=== PATIENT | female | born 1990 | race African-American/Black ===

== ENCOUNTER 2021-01-22 15:10 | Emergency (ER) | payer SELFPAY ==
[~2021-01-22] VITALS: Ht 160 cm; Wt 127.6 kg
[2021-01-22 15:28] VITALS: BP 168/64
--- NOTE | 2021-01-22 15:39 | PHYS DOC ---
Past History Past Medical History: No Pertinent History (JERE COTTRELL APRN) Past Surgical History: (JERE COTTRELL APRN) Alcohol Use: None (JERE COTTRELL APRN) Adult General Chief Complaint Chief Complaint: HEARTBURN/GI DISTRESS [facility] HPI Patient is a 30-year-old female presents to the emergency department complaints of upper esophageal burning when she burps for the past 4 or 5 days. Patient states she took Maalox once and took a Prilosec without relief. Patient states she does not have any discomfort at this time. Patient denies chest pain, shortness of breath, nausea, vomiting, diarrhea, or constipation. Patient states she did take 2 tablet 500 mg Tylenol just prior to arrival. Patient denies any STI concerns, denies recent fever or chills, denies a family history of heart disease, states she does not know her dad, states that her mom is from liver cancer. Patient denies any allergies to medications. Patient states she takes no prescription medications at home. Patient denies any other physical complaints or physical concerns. (JERE COTTRELL APRN) Review of Systems Review of Systems 14 body systems of review of systems have been reviewed. See HPI for pertinent positives and negative responses, otherwise all other systems are negative, nonpertinent or noncontributory. (JERE COTTRELL APRN) Allergies Allergies Allergies Coded Allergies Type Severity Reaction Last Updated Verified No Known Drug Allergies 01/22/21 No (JERE COTTRELL APRN) Physical Exam Physical Exam Constitutional: Well developed, well nourished, no acute distress, non-toxic appearance. 30-year-old female no apparent distress. HENT: Normocephalic, atraumatic, bilateral external ears normal, oropharynx moist, no oral exudates, nose normal. Eyes: PERRLA, EOMI, conjunctiva normal, no discharge. Neck: Normal range of motion, no tenderness, supple, no stridor. Cardiovascular:Heart rate regular rhythm, no murmur, heart sounds S1-S2 to auscultation. Lungs & Thorax: Bilateral breath sounds clear to auscultation no adventitious lung sounds appreciated. Abdomen: Bowel sounds normal, soft, no tenderness, no masses, no pulsatile masses. Skin: Warm, dry, no erythema, no rash. Back: No tenderness, no CVA tenderness. Extremities: No tenderness, no cyanosis, no clubbing, ROM intact, no edema. Neurologic: Alert and oriented X 3, normal motor function, normal sensory function, no focal deficits noted. Psychologic: Affect normal, judgement normal, mood normal. (JERE COTTRELL APRN) Current Patient Data Vital Signs Vital Signs Date Time Temp Pulse Resp B/P (MAP) Pulse Ox O2 Delivery O2 Flow Rate FiO2 01/22/21 15:28 97.4 91 16 168/64 (98) 96 Room Air (JERE COTTRELL APRN) EKG EKG EKG performed at 1516 shows a normal sinus rhythm without ectopy, heart rate 84 bpm, TN interval 0.140, QTc interval 0.471, no acute STEMI, no ACS, no acute ischemia appreciated, EKG interpreted by ED attending physician Dr. Kim. (JERE COTTRELL APRN) Radiology/Procedures Radiology/Procedures [] (JERE COTTRELL APRN) Heart Score C/O Chest Pain: Yes HEART Score for Chest Pain: HEART Score for Chest Pain Response (Comments) Value History Slighlty/Non-Suspicious 0 ECG Normal 0 Age < 45 0 Risk Factors 1 or 2 Risk Factors 1 Troponin < Normal Limit 0 Total 1 Risk Factors: Risk Factors: DM, Current or recent (<one month) smoker, HTN, HLP, family history of CAD, obesity. Risk Scores: Risk Factors: DM, Current or recent (<one month) smoker, HTN, HLP, family histo ry of CAD, obesity. (JERE COTTRELL APRN) Course & Med Decision Making Course & Med Decision Making Pertinent Labs and Imaging studies reviewed. (See chart for details) 30-year-old female, vital signs reviewed, presents emergency department concerning epigastric burning when she burps for the past 4 to 5 days. Physical examination concerning for possible gastric reflux disease. However patient has unknown health history from father side, well order EKG, chest x-ray, troponin I, CBC, BMP. Will give GI cocktail for symptoms. Chest x-ray, lab work unremarkable. Patient's heart score equals 1. Upon reevaluation of the patient, patient states that the GI cocktail relieved all of her symptoms. Discussed with patient this is most likely a gastric reflux process. Recommended with patient to follow-up with primary care, will start on Prilosec 20 mg twice daily, primary care will reevaluate and possibly recommend GI consult. Patient was amenable to this plan. Patient gave verbal understanding of discharge home instructions, follow-up with primary care, [facility], new prescription medication use, was thankful and states is ready to go home, patient was discharged home without incident. (JERE COTTRELL APRN) Course & Med Decision Making I oversaw on the above date of service of this patient and discussed the care with the CHAIR MENDER. I agree with the findings, plan of care, and disposition as documented. Electronically signed, Param Kim DO (PARAM KIM DO) Dragon Disclaimer Dragon Disclaimer This electronic medical record was generated, in whole or in part, using a voice recognition dictation system. (JERE COTTRELL APRN) Departure Departure: Impression: Primary Impression: Gastric reflux syndrome Disposition: HOME / SELF CARE / HOMELESS Condition: GOOD Referrals: PCP,SHANAE (PCP) ELSIE ANDERSON Patient Instructions: Heartburn Additional Instructions: You are seen today in the emergency department for a burning sensation in your upper chest while burping. You were given a GI cocktail which relieved your symptoms. A cardiorespiratory work-up was performed in the ED. Your EKG and chest x-ray did not show any concerning findings. Your lab work showed some anemia, you are aware of this stating that you should be taking iron supplements. I recommend you start iron supplements again. I am starting you on Prilosec for your gastric reflux symptoms. Please take as directed. I am giving you 1 months worth, please follow-up with a primary care physician for consideration of GI follow-up for further study. If you are unable to secure an appointment with your primary care physician, I have recommended [facility] for primary care and ongoing healthcare needs. Please return to the emergenc y department for worsening symptoms or other concerns. EMERGENCY DEPARTMENT GENERAL DISCHARGE INSTRUCTIONS Thank you for coming to [facility] (ED) today and trusting us with you care. We trust that you had a positivie experience in our Emergency Department. If you wish to speak to the department management, you may call the director at [phone]. YOUR FOLLOW UP INSTRUCTIONS ARE FOLLOWS: 1. Do you have a private Doctor? If you do not have a private doctor, please ask for a resource list of physicians or clinics that may be able to assist you with follow up care. 2. The Emergency Physician has interpreted your x-rays. The X-Ray specialist will also review them. If there is a change in the findings, you will be notified in 48 hours when at all possible. 3. A lab test or culture has been done, your results will be reviewed and you will be notified if you need a change in treatment. ADDITIONAL INSTRUCTIONS AND INFORMATION: 1. Your care today has been supervised by a physician who is specially trained in emergency care. Many problems require more than one evaluation for a complete diagnosis and treatment. We recommend that you schedule your follow up appointment as recommended to ensure complete treatment of you illness or injury. If you are unable to obtain follow up care and continue to have a problem, or if your condition worsens, we recommend that you return to the ED. 2. We are not able to safely determine your condition over the phone nor are we able to give sound medical advice over the phone. For these safety reasons, if you call for medical advice we will ask you to come to the ED for further evaluation. 3. If you have any questions regarding these discharge instructions please call the ED at [phone]. SAFETY INFORMATION: In the interest of safety, wellness, and injury prevention; we encourage you to wear your sealbelt, if you smoke; quite smoking, and we encourage family to use a protective helmet for bicycling and other sporting events that present an increased risk for head injury. IF YOUR SYMPTOMS WORSEN OR NEW SYMPTOMS DEVELOP, OR YOU HAVE CONCERNS ABOUT YOUR CONDITION; OR IF YOUR CONDITION WORSENS WHILE YOU ARE WAITING FOR YOUR FOLLOW UP APPOINTMENT; EITHER CONTACT YOUR PRIMARY CARE DOCTOR, THE PHYSICIAN WHOSE NAME AND NUMBER YOU WERE GIVEN, OR RETURN TO THE ED IMMEDIATELY. Scripts Omeprazole (OMEPRAZOLE) 20 Mg Capsule. 1 CAP PO DAILY for GERD, #30 CAP 0 Refills Prov: JERE COTTRELL APRN 01/22/21 JERE COTTRELL APRN January 22, 2021 15:39 PARAM KIM DO January 25, 2021 16:11
[2021-01-22] MEDS ORDERED: LIDO:MAALOX 1:1 20 ML SINGLE DOSE. ONE (15:45)
[2021-01-22] MEDS ORDERED: LIDO:MAALOX 1:1 20 ML SINGLE DOSE. PO ONE (15:45)
[2021-01-22 16:07] LABS: BASO # 0.1 x10^3/uL (0.0-0.2); BASO % 1 % (0-3); EOS % 1 % (0-3); HEMATOCRIT 30.6 % (36.0-47.0); HEMOGLOBIN 9.9 g/dL (12.0-15.5); LYMPH # 1.5 x10^3/uL (1.0-4.8); LYMPH % 20 % (24-48); MEAN CORPUSCULAR HEMOGLOBIN 25 pg (25-35); MEAN CORPUSCULAR HGB CONC 32 g/dL (31-37); MEAN CORPUSCULAR VOLUME 78 fL (79-100); MONO # 0.5 x10^3/uL (0.0-1.1); MONO % 7 % (0-9); NEUT # 5.3 x10^3uL (1.8-7.7); NEUT % 72 % (31-73); PLATELET COUNT 402 x10^3/uL (140-400); RED BLOOD COUNT 3.94 x10^6/uL (3.50-5.40); RED CELL DISTRIBUTION WIDTH 16.5 % (11.5-14.5); WHITE BLOOD COUNT 7.5 x10^3/uL (4.0-11.0)
[2021-01-22 16:16] LABS: CALCIUM 8.9 mg/dL (8.5-10.1); CREATININE 0.8 mg/dL (0.6-1.0); GFR 101.9; POTASSIUM 3.7 mmol/L (3.5-5.1)
--- NOTE | 2021-01-22 16:17 | EKG ---
[address] [address] Test Date: 2021-01-22 Test Time: 15:16:06 Pat Name: MELISSA KUMAR Department: Room: Gender: F Fur Stylist: JENNIFER : 1990 Requested By: JERE COTTRELL Order Number: [id number] Reading MD: Measurements Intervals [place] Rate: 84 P: 34 HI: 140 QRS: 36 QRSD: 84 T: -6 QT: 396 QTc: 471 Interpretive Statements SINUS RHYTHM NORMAL ECG RI6.02 No previous ECG available for comparison
--- NOTE | 2021-01-22 16:53 | RAD ---
Chest PA and lateral: Reason for examination: Chest burning. The heart size is normal. Mediastinum is unremarkable. Lung chaparro are clear. No acute bony abnormali ties are seen. Impression: No acute cardiopulmonary disease. Electronically signed by: Caryn Abarca MD (01/22/2021 4:51 PM) DESMOND
[2021-01-22] MEDS ORDERED: OMEP20CA16 PO (18:18)
== END 2021-01-22 18:25 | disposition home or self-care (01) ==
LOC: ER 15:10
DX: K21.9 Gastro-esophageal reflux disease without esophagitis (principal)
CPT/HCPCS: 36415; 71046; 80048; 84484; 85025; 93005; 99285-25